=== PATIENT | male | born 1985 | race African-American/Black ===

== ENCOUNTER 2016-11-05 08:23 | Inpatient (IN) | payer SELFPAY ==
[~2016-11-05] VITALS: Ht 170.2 cm; Wt 104.5 kg
[2016-11-05 09:11] LABS: Basophils # (auto) 0 uL; Basophils % (auto) 0.3 % (0.0-2.0); CONDITION Y; Eosinophils # (auto) 0 uL; Eosinophils % (auto) 0.3 % (0.0-7.0); Hematocrit 49.5 % (41.0-53.0); Hemoglobin 16.7 g/dL (13.5-17.5); Lymphocytes # (auto) 1.2 uL; Lymphocytes % (auto) 11.6 % (10.0-50.0); Mean Corpuscular Hemoglobin 29.2 pg (28.0-32.0); Mean Corpuscular Hgb Conc. 33.8 g/dL (32.0-36.0); Mean Corpuscular Volume 86.3 fL (80.0-100.0); Mean Platelet Volume 8.9 fL (7.4-10.4); Monocytes # (auto) 0.6 uL; Monocytes % (auto) 5.7 % (0.0-12.0); Neutrophils # (auto) 8.4 uL; Neutrophils % (auto) 82.1 % (37.0-80.0); Platelet Count (auto) 253 10^3/uL (140-450); Red Cell Distribution Width 13.3 % (11.6-16.0); White Blood Cell 10.2 10^3/uL (4.4-10.8)
[2016-11-05 10:11] LABS: Urine Bilirubin Negative (Negative); Urine Blood TRACE /uL (Negative); Urine Color Yellow (Yellow); Urine Glucose Normal (Normal); Urine Ketone 3+ (Negative); Urine Mucus FEW (None Seen); Urine Nitrite Negative (Negative); Urine RBC <1 /hpf (0 - 3); Urine Urobilinogen Normal (Negative)
[2016-11-05 10:15] LABS: Albumin 3.8 g/dL (3.4-5.0); BUN/Creatinine Ratio 13.3; Calcium 9.4 mg/dL (8.5-10.1)
[2016-11-05 10:18] LABS: Bilirubin, Total 0.5 mg/dL (0.2-1.0); Total Protein 8.2 g/dL (6.4-8.2)
[2016-11-05] MEDS ORDERED: KETOROLAC TROMETH 30 MG/ML 1ML VIAL IV ONE (11:00)
[2016-11-05] MEDS ORDERED: SODIUM CHLORIDE 0.9% 1,000 ML IV ONE (11:00)
[2016-11-05] MEDS ORDERED: cefTRIAXone 1GM/50ML D5W 50 ML IV ONE ×2 (12:00→12:15)
[2016-11-05] MEDS ORDERED: NITROGLYCERIN 0.4 MG SL TAB SL PRN (12:15)
[2016-11-05] MEDS ORDERED: LORazepam 2MG/ML-1ML VIAL IV PRN (12:15)
[2016-11-05] MEDS ORDERED: MORPHINE SULF INJ 2 MG/ML SYRINGE 1ML IV PRN (12:15)
[2016-11-05] MEDS ORDERED: MORPHINE SULFATE 4 MG/ML SYRG IV PRN (12:15)
[2016-11-05] MEDS ORDERED: PROMETHAZINE HCL 25 MG/ML 1ML IV PRN (12:15)
[2016-11-05] MEDS: SODIUM CHLORIDE 0.9% 1,000 ML IV SCH ×2 (13:05→21:37)
[2016-11-05 13:11] LABS: INR 0.95 (0.9-1.15); Partial Thromboplastin Time 28.5 sec (22.64-33.71); Prothrombin Time 10.3 sec (9.37-12.3)
[2016-11-05] MEDS: MORPHINE SULF INJ 2 MG/ML SYRINGE 1ML IV PRN ×2 (13:12→21:36)
[2016-11-05] MEDS ORDERED: ENOXAPARIN SOD 40 MG/0.4 ML SYRINGE SC ONE (14:15)
[2016-11-05 16:00] VITALS: BP 140/87
[2016-11-05 16:45] VITALS: BP 140/87
[2016-11-05] MEDS: metroNIDAZOLE 500MG/100ML 100 ML IV SCH ×2 (17:34→23:59)
[2016-11-05 20:00] VITALS: BP 144/84
[2016-11-05 22:00] VITALS: BP 144/84
[2016-11-06] MEDS: MORPHINE SULF INJ 2 MG/ML SYRINGE 1ML IV PRN ×4 (04:59→22:22)
[2016-11-06 05:00] VITALS: BP 143/87
[2016-11-06] MEDS: metroNIDAZOLE 500MG/100ML 100 ML IV SCH ×4 (05:31→23:29)
[2016-11-06 06:33] LABS: Basophils # (auto) 0 uL; Basophils % (auto) 0.3 % (0.0-2.0); Eosinophils # (auto) 0.1 uL; Eosinophils % (auto) 1.2 % (0.0-7.0); Hematocrit 45.4 % (41.0-53.0); Hemoglobin 15.7 g/dL (13.5-17.5); Lymphocytes # (auto) 1.2 uL; Lymphocytes % (auto) 11.8 % (10.0-50.0); Mean Corpuscular Hgb Conc. 34.7 g/dL (32.0-36.0); Mean Corpuscular Volume 86.6 fL (80.0-100.0); Mean Platelet Volume 8.4 fL (7.4-10.4); Monocytes % (auto) 9.9 % (0.0-12.0); Neutrophils # (auto) 7.5 uL; Neutrophils % (auto) 76.8 % (37.0-80.0); Nucleated Red Blood Cells % 0.2 %; Platelet Count (auto) 218 10^3/uL (140-450); Red Cell Distribution Width 13.6 % (11.6-16.0); White Blood Cell 9.7 10^3/uL (4.4-10.8)
[2016-11-06 06:47] LABS: Potassium 4.7 mmol/L (3.5-5.1)
[2016-11-06 06:49] LABS: Albumin 3.1 g/dL (3.4-5.0); BUN/Creatinine Ratio 8.5; Calcium 8.8 mg/dL (8.5-10.1)
[2016-11-06 06:59] LABS: Bilirubin, Total 0.8 mg/dL (0.2-1.0)
[2016-11-06 08:00] VITALS: BP 150/84
[2016-11-06] MEDS: SODIUM CHLORIDE 0.9% 1,000 ML IV SCH ×2 (08:45→18:05)
[2016-11-06 09:00] VITALS: BP 146/79
[2016-11-06] MEDS: ENOXAPARIN SOD 40 MG/0.4 ML SYRINGE SC SCH (10:32)
[2016-11-06] MEDS: cefTRIAXone 1GM/50ML D5W 50 ML IV SCH (10:32)
[2016-11-06 12:54] VITALS: BP 150/84
[2016-11-06 16:59] VITALS: BP 141/79
[2016-11-06 22:00] VITALS: BP 149/87
[2016-11-06] MEDS ORDERED: TEMAZEPAM 15 MG CAP PO ONE (22:15)
[2016-11-06] MEDS: ACETAMINOPHEN 325 MG TAB PO PRN (22:22)
[2016-11-07] MEDS: SODIUM CHLORIDE 0.9% 1,000 ML IV SCH ×3 (00:05→23:04)
[2016-11-07 05:00] VITALS: BP 132/81
[2016-11-07] MEDS: metroNIDAZOLE 500MG/100ML 100 ML IV SCH ×4 (06:00→23:06)
[2016-11-07 06:26] LABS: Basophils # (auto) 0 uL; Basophils % (auto) 0.4 % (0.0-2.0); CONDITION Y; Eosinophils # (auto) 0.4 uL; Eosinophils % (auto) 4.6 % (0.0-7.0); Hematocrit 42.7 % (41.0-53.0); Hemoglobin 14.5 g/dL (13.5-17.5); Lymphocytes # (auto) 1.6 uL; Mean Corpuscular Hemoglobin 29.2 pg (28.0-32.0); Mean Corpuscular Volume 86.1 fL (80.0-100.0); Mean Platelet Volume 9.3 fL (7.4-10.4); Monocytes # (auto) 0.9 uL; Monocytes % (auto) 9.7 % (0.0-12.0); Neutrophils # (auto) 6.2 uL; Neutrophils % (auto) 68.3 % (37.0-80.0); Platelet Count (auto) 239 10^3/uL (140-450); Red Cell Distribution Width 13.4 % (11.6-16.0); White Blood Cell 9.1 10^3/uL (4.4-10.8)
[2016-11-07 06:53] LABS: Albumin 2.7 g/dL (3.4-5.0); Calcium 8.8 mg/dL (8.5-10.1)
[2016-11-07 06:56] LABS: BUN/Creatinine Ratio 7.1
[2016-11-07 06:58] LABS: Bilirubin, Total 0.6 mg/dL (0.2-1.0); Total Protein 6.6 g/dL (6.4-8.2)
[2016-11-07 08:16] VITALS: BP 146/91
[2016-11-07] MEDS: ENOXAPARIN SOD 40 MG/0.4 ML SYRINGE SC SCH (09:24)
[2016-11-07] MEDS: cefTRIAXone 1GM/50ML D5W 50 ML IV SCH (09:24)
[2016-11-07 12:11] VITALS: BP 137/97
[2016-11-07] MEDS: MORPHINE SULF INJ 2 MG/ML SYRINGE 1ML IV PRN ×2 (14:08→21:03)
[2016-11-07 16:30] VITALS: BP 147/93
[2016-11-07 20:00] VITALS: BP 138/85
[2016-11-07 22:00] VITALS: BP 138/85
[2016-11-07] MEDS ORDERED: TEMAZEPAM 15 MG CAP PO ONE (22:45)
[2016-11-08 05:00] VITALS: BP 136/76
[2016-11-08] MEDS: metroNIDAZOLE 500MG/100ML 100 ML IV SCH ×3 (05:36→17:58)
[2016-11-08] MEDS: ACETAMINOPHEN 325 MG TAB PO PRN ×3 (05:40→22:30)
[2016-11-08 06:00] LABS: Basophils # (auto) 0 uL; Basophils % (auto) 0.4 % (0.0-2.0); CONDITION Y; Eosinophils # (auto) 0.5 uL; Eosinophils % (auto) 5.7 % (0.0-7.0); Hematocrit 40.5 % (41.0-53.0); Hemoglobin 13.8 g/dL (13.5-17.5); Lymphocytes # (auto) 1.8 uL; Lymphocytes % (auto) 22.3 % (10.0-50.0); Mean Corpuscular Hemoglobin 29.4 pg (28.0-32.0); Mean Corpuscular Hgb Conc. 34.2 g/dL (32.0-36.0); Mean Corpuscular Volume 86.1 fL (80.0-100.0); Mean Platelet Volume 8.6 fL (7.4-10.4); Monocytes # (auto) 0.9 uL; Monocytes % (auto) 10.8 % (0.0-12.0); Neutrophils # (auto) 4.9 uL; Neutrophils % (auto) 60.8 % (37.0-80.0); Platelet Count (auto) 269 10^3/uL (140-450); Red Cell Distribution Width 13.2 % (11.6-16.0); White Blood Cell 8.1 10^3/uL (4.4-10.8)
[2016-11-08 06:30] LABS: Albumin 2.7 g/dL (3.4-5.0); BUN/Creatinine Ratio 9.2; Bilirubin, Total 0.6 mg/dL (0.2-1.0); Calcium 8.6 mg/dL (8.5-10.1); Potassium 3.8 mmol/L (3.5-5.1); Total Protein 6.6 g/dL (6.4-8.2)
[2016-11-08 09:17] VITALS: BP 142/95
[2016-11-08] MEDS: SODIUM CHLORIDE 0.9% 1,000 ML IV SCH ×2 (09:40→21:00)
[2016-11-08] MEDS: ENOXAPARIN SOD 40 MG/0.4 ML SYRINGE SC SCH (09:40)
[2016-11-08] MEDS: cefTRIAXone 1GM/50ML D5W 50 ML IV SCH (09:40)
[2016-11-08 12:18] VITALS: BP 136/87
[2016-11-08 16:53] VITALS: BP 152/94
[2016-11-08] MEDS ORDERED: TEMAZEPAM 15 MG CAP PO ONE (18:00)
[2016-11-08 20:00] VITALS: BP 145/91
[2016-11-08 22:00] VITALS: BP 145/91
[2016-11-08] MEDS: TEMAZEPAM 15 MG CAP PO PRN (22:30)
[2016-11-09] MEDS: metroNIDAZOLE 500MG/100ML 100 ML IV SCH ×5 (00:15→23:52)
[2016-11-09 05:00] VITALS: BP 145/82
[2016-11-09] MEDS: SODIUM CHLORIDE 0.9% 1,000 ML IV SCH ×2 (06:18→16:29)
[2016-11-09] MEDS: ACETAMINOPHEN 325 MG TAB PO PRN ×3 (06:19→21:37)
[2016-11-09 06:30] LABS: INR 1.06 (0.9-1.15); Partial Thromboplastin Time 30.3 sec (22.64-33.71); Prothrombin Time 11.6 sec (9.37-12.3)
[2016-11-09 08:00] VITALS: BP 140/85
[2016-11-09] MEDS ORDERED: fentaNYL CITRATE 100 MCG/2 ML VL ONE (08:33)
[2016-11-09] MEDS ORDERED: MIDAZOLAM HCL 1MG/1ML-2 ML VIAL ONE (08:33)
[2016-11-09] MEDS ORDERED: SODIUM CHLORIDE LOCK 20 ML ONE (08:34)
[2016-11-09] MEDS ORDERED: GLYCOPYRROLATE 0.2 MG/ML 1ML VIAL ONE (08:34)
[2016-11-09] MEDS ORDERED: PROPOFOL 10 MG/ML 20 ML IV ONE ×2 (08:34→10:40)
[2016-11-09] MEDS ORDERED: KETOROLAC TROMETH 60MG/2ML VIAL IM ONE (08:34)
[2016-11-09] MEDS ORDERED: ONDANSETRON HCL 4 MG/2 ML VIAL ONE (08:34)
[2016-11-09] MEDS ORDERED: ROCURONIUM 10MG/ML 10ML VIAL IV ONE (08:34)
[2016-11-09] MEDS ORDERED: MEPERIDINE HCL (50 MG/ML) 1 ML VIAL ONE (08:34)
[2016-11-09] MEDS ORDERED: NEOSTIGMINE 1 MG/ML INJ (10mg/10ML VIAL) ONE (08:34)
[2016-11-09 09:00] VITALS: BP 140/85
[2016-11-09] MEDS: cefTRIAXone 1GM/50ML D5W 50 ML IV SCH (09:00)
[2016-11-09] MEDS ORDERED: ceFAZolin 1GM/50ML D5W 50 ML IV ONE (09:16)
[2016-11-09] MEDS ORDERED: HYDROmorphone HCL 2 MG/ML VL IV PRN (09:45)
[2016-11-09] MEDS ORDERED: METOCLOPRAMIDE HCL 5MG/ml INJ 2ml VIAL IV ONE (09:45)
[2016-11-09] MEDS ORDERED: KETOROLAC TROMETH 30 MG/ML 1ML VIAL IV ONE (09:45)
[2016-11-09] MEDS: MORPHINE SULF INJ 2 MG/ML SYRINGE 1ML IV PRN (13:06)
[2016-11-09 16:56] VITALS: BP 130/86
[2016-11-09 20:00] VITALS: BP 134/76
[2016-11-09] MEDS: TEMAZEPAM 15 MG CAP PO PRN (21:37)
[2016-11-09 22:00] VITALS: BP 134/76
[2016-11-10] MEDS: SODIUM CHLORIDE 0.9% 1,000 ML IV SCH ×3 (04:04→21:04)
[2016-11-10 05:00] VITALS: BP 124/75
[2016-11-10] MEDS: metroNIDAZOLE 500MG/100ML 100 ML IV SCH (06:03)
[2016-11-10 06:04] LABS: Basophils # (auto) 0.1 uL; Basophils % (auto) 0.9 % (0.0-2.0); Eosinophils # (auto) 0 uL; Eosinophils % (auto) 0.2 % (0.0-7.0); Hematocrit 39.1 % (41.0-53.0); Hemoglobin 13.5 g/dL (13.5-17.5); Lymphocytes # (auto) 2.1 uL; Lymphocytes % (auto) 17.6 % (10.0-50.0); Mean Corpuscular Hemoglobin 29.7 pg (28.0-32.0); Mean Corpuscular Hgb Conc. 34.6 g/dL (32.0-36.0); Mean Platelet Volume 7.7 fL (7.4-10.4); Monocytes % (auto) 8.6 % (0.0-12.0); Neutrophils # (auto) 8.5 uL; Neutrophils % (auto) 72.7 % (37.0-80.0); Platelet Count (auto) 286 10^3/uL (140-450); White Blood Cell 11.7 10^3/uL (4.4-10.8)
[2016-11-10 06:32] LABS: Albumin 2.5 g/dL (3.4-5.0); Calcium 8.8 mg/dL (8.5-10.1); Potassium 4.2 mmol/L (3.5-5.1)
[2016-11-10 06:41] LABS: BUN/Creatinine Ratio 10.4; Bilirubin, Total 0.3 mg/dL (0.2-1.0)
[2016-11-10 08:09] VITALS: BP 138/80
[2016-11-10] MEDS: cefTRIAXone 1GM/50ML D5W 50 ML IV SCH (09:01)
[2016-11-10 12:58] VITALS: BP 136/80
[2016-11-10] MEDS: metroNIDAZOLE 500 MG TAB PO SCH ×2 (13:06→21:04)
[2016-11-10] MEDS: HYDROcodone-ACET 5/325MG TAB PO PRN ×2 (13:06→21:05)
[2016-11-10] MEDS: TEMAZEPAM 15 MG CAP PO PRN (21:05)
[2016-11-10 22:00] VITALS: BP 123/69
[2016-11-11 05:23] VITALS: BP 136/82
[2016-11-11] MEDS: metroNIDAZOLE 500 MG TAB PO SCH (05:50)
[2016-11-11 06:24] LABS: Basophils # (auto) 0.1 uL; Eosinophils # (auto) 0.2 uL; Eosinophils % (auto) 3.1 % (0.0-7.0); Hematocrit 40.1 % (41.0-53.0); Hemoglobin 13.5 g/dL (13.5-17.5); Lymphocytes # (auto) 2.8 uL; Lymphocytes % (auto) 36.3 % (10.0-50.0); Mean Corpuscular Hemoglobin 29.2 pg (28.0-32.0); Mean Corpuscular Hgb Conc. 33.6 g/dL (32.0-36.0); Mean Corpuscular Volume 86.7 fL (80.0-100.0); Mean Platelet Volume 8.5 fL (7.4-10.4); Monocytes # (auto) 0.8 uL; Monocytes % (auto) 10.1 % (0.0-12.0); Neutrophils # (auto) 3.8 uL; Neutrophils % (auto) 49.5 % (37.0-80.0); Nucleated Red Blood Cells % 0.1 %; Platelet Count (auto) 287 10^3/uL (140-450); Red Cell Distribution Width 13.3 % (11.6-16.0); White Blood Cell 7.7 10^3/uL (4.4-10.8)
[2016-11-11 06:38] LABS: Albumin 2.5 g/dL (3.4-5.0); Calcium 8.5 mg/dL (8.5-10.1)
[2016-11-11 06:39] LABS: BUN/Creatinine Ratio 9.6
[2016-11-11 06:46] LABS: Bilirubin, Total 0.2 mg/dL (0.2-1.0)
[2016-11-11 07:54] VITALS: BP 129/84
[2016-11-11] MEDS: SODIUM CHLORIDE 0.9% 1,000 ML IV SCH (08:05)
[2016-11-11] MEDS ORDERED: LEVOFLOXACIN 500 MG TAB PO SCH (10:00)
[2016-11-11 10:40] VITALS: BP 129/84
[2016-11-11 10:52] VITALS: BP 129/84
[2016-11-11 11:00] VITALS: BP 143/88
== END 2016-11-11 11:40 | disposition home or self-care (01) | DRG 417 ==
LOC: ER 08:23 → TELE 08:24 → TELE-CENTR 16:53 → CENTRAL 11-06 10:38
PROVIDERS: ADMIT Internal Medicine; ATTEND Internal Medicine
PROC: 0FT44ZZ Resection of Gallbladder, Percutaneous Endoscopic Approach (ICD-10-PCS; principal; 2016-11-09 09:36)
DX: K81.0 Acute cholecystitis (principal); K85.90 Acute pancreatitis without necrosis or infection, unspecified; R00.1 Bradycardia, unspecified; K82.8 Other specified diseases of gallbladder; E66.9 Obesity, unspecified; F41.9 Anxiety disorder, unspecified; Z86.711 Personal history of pulmonary embolism; Z86.718 Personal history of other venous thrombosis and embolism; Z87.442 Personal history of urinary calculi; Z68.36 Body mass index [BMI] 36.0-36.9, adult
CPT/HCPCS: 36415; 74176; 76705; 78226; 80053; 81001; 82150; 83690; 85025; 85610; 85730; 86850; 86900; 86901; 87040; 93005; 96361; 96365; 96372; 96375; J0690; J0696; J1885; J2250; J2405; J2704; J3490

== ENCOUNTER → 2016-12-30 | Outpatient (CLI) | payer BC ==
[2016-12-30 09:29] LABS: Basophils # (auto) 0.1 uL; Basophils % (auto) 1.1 % (0.0-2.0); Eosinophils # (auto) 0.2 uL; Eosinophils % (auto) 3.7 % (0.0-7.0); Hematocrit 50.2 % (41.0-53.0); Hemoglobin 16.9 g/dL (13.5-17.5); Lymphocytes # (auto) 2.8 uL; Mean Corpuscular Hgb Conc. 33.6 g/dL (32.0-36.0); Mean Corpuscular Volume 86.3 fL (80.0-100.0); Monocytes # (auto) 0.5 uL; Neutrophils # (auto) 1.8 uL; Neutrophils % (auto) 33.2 % (37.0-80.0); Nucleated Red Blood Cells % 0.1 %; Platelet Count (auto) 241 10^3/uL (140-450); Red Blood Cells 5.82 10^6/uL (4.5-5.90); Red Cell Distribution Width 13.6 % (11.8-14.3); White Blood Cell 5.3 10^3/uL (4.4-10.8)
[2016-12-30 09:51] LABS: Albumin 3.8 g/dL (3.4-5.0); BUN/Creatinine Ratio 11.5; Bilirubin, Total 0.4 mg/dL (0.2-1.0); Calcium 9.2 mg/dL (8.5-10.1); Potassium 4.1 mmol/L (3.5-5.1); Total Protein 7.6 g/dL (6.4-8.2)
== END | disposition home or self-care (01) ==
LOC: LAB 07:06
PROVIDERS: ATTEND Internal Medicine
DX: I10 Essential (primary) hypertension (principal); E78.2 Mixed hyperlipidemia
CPT/HCPCS: 36415; 80053; 80061; 83090; 85025; 85302; 85303; 85306; 85613; 85670; 85705; 85732; 86800